=== PATIENT | female | born 1945 | race Caucasian/White ===

== ENCOUNTER 2024-12-27 03:29 | Emergency (ER) | payer MEDICARE, MEDICAID, SELFPAY ==
[2024-12-27] VITALS (7 sets, daily range): BP systolic 128–137; BP diastolic 70–83; PULSE 67–83; RESP 17–20; TEMP 36–36.8; O2SAT 95–97; BMI 20.1
--- NOTE | 2024-12-27 04:29 | XR_ITS ---
Examination: CT brain head without contrast. 2-D sagittal coronal reconstructions Date and time of exam:December 27, 2024 0456 hours INDICATIONS: Patient fell today with injury to head, head pain CTDI: vol (mGy):46.40 DLP: (mGycm):905 Technique: Multiple CT axial sections of the brain have been obtained, 5 mm slice thickness. Contrast has not been administered. 2-D sagittal, coronal reconstructions have been obtained Low dose protocols were performed. One or more of the following dose reduction techniques were used; automated exposure control, adjustment of the mA and/or KV according to patient size, use of iterative reconstruction technique. Findings: No significant ventricular enlargement. Intra-axial or extra-axial hemorrhage density is not seen. No mass effect or midline shift Basal cisterns are not remarkable. Fourth ventricle is midline. Cranial vault intact. Impression: Negative for acute hemorrhage, mass effect or midline shift
--- NOTE | 2024-12-27 04:36 | XR_ITS ---
Examination: CT cervical spine without contrast 2-D sagittal reconstructions 2-D coronal reconstructions 3-D reconstructions. Exam date and time:December 27, 2024 0458 hours INDICATIONS: Patient fell today with injury to the neck, neck pain CTDI:vol (mGy) 11.66 DLP: (mGycm) 268 Technique: Multiple 2 mm axial sections of the cervical spine have been obtained. The coronal and sagittal reconstructions have been obtained. 3-D reconstructions have been obtained. Low dose protocols were performed. One or more of the following dose reduction techniques were used; automated exposure control, adjustment of the mA and/or KV according to patient size, use of iterative reconstruction technique. Findings: Axial sections demonstrate intact base of the skull. C1 exhibit satisfactory relationship to the odontoid. No acute cervical vertebral body fracture seen. Alignment posterior spinous processes satisfactory. 8 mm nodule at the right apex, soft nodule Impression: No acute cervical fracture. Recommend PA and lateral AP lordotic chest follow-up
--- NOTE | 2024-12-27 04:52 | PD.EDFALL ---
ED Fall Injury RME/HPI General Chief Complaint: Fall Stated Complaint: FALL Time Seen by Provider: 12/27/24 04:28 Arrival date/time: 12/27/24 03:29 RME / HPI RME / HPI Narrative: Patient is a 79-year-old female with past medical history of hypertension, COPD, GERD, dementia, bipolar disorder, depression, and anxiety who was brought in by ambulance from [facility] to the ED on 12/27/2024. Per report, caregiver was washing hands and when they turned around the patient was found sitting on the floor with laceration to back of head. Patient is unable to provide any reliable history due to dementia. When asked about the fall patient states she does not know. Patient does seem to endorse mild head pain, denies any other compliant. Patient is not on any blood thinners. MD complaint: fall Onset (ago): hour(s) Fall from: standing Fall witnessed: no Place fall occurred: skilled nursing/SNF Loss of consciousness: unsure Prolonged down time: no Symptoms prior to fall: none Context: tripped/slipped Location of injury: head Related Data Home Medications ?Medication ?Instructions ?Recorded ?Confirmed atorvastatin 20 mg tablet 1 tab PO QDAY 04/01/22 04/01/22 divalproex 125 mg capsule,delayed 250 mg PO QDAY 04/01/22 04/01/22 release sprinkle duloxetine 30 mg capsule,delayed 60 mg PO QDAY 04/01/22 04/01/22 release gabapentin 300 mg capsule 3 cap PO QDAY 04/01/22 04/01/22 hydrochlorothiazide 25 mg tablet 25 tab PO QDAY 04/01/22 04/01/22 memantine 5 mg tablet 10 mg PO QDAY 04/01/22 04/01/22 pantoprazole 20 mg tablet,delayed 1 tab PO QDAY 04/01/22 04/01/22 release Past Medical History Past Medical History Comments PMH COMMENT: Past Medical History: Hypertension, COPD, GERD, dementia, bipolar disorder, depression, and anxiety Family History: Unknown Surgical History: Unknown Social History: Denies history of smoking, denies current alcohol use, denies recreational drug use Current Medications: Depakote 125 mg qday, sertraline 100 mg qday, gabapentin 300 mg TID, pantoprazole 20 mg qday, ferrous sulfate 325 mg, dilaudid prn, lorazepam prn, docusate prn, dulcolax prn, milk of magnesia prn, fleet enema prn, acetaminophen prn, guaifenesin (Source: [facility] medication list) Allergies: [place], morphine POLST form signed 2020 states patient is Limited Code: NO CPR, OK intubation ED Exam Narrative Physical exam: Physical Exam General: Awake and in no acute distress. Elderly appearing female, pleasantly confused. HEENT: Normocephalic, about 3 cm laceration to the occiput of the head, about 0.5 cm deep, with clotted blood, mucous membranes moist. Heart: Regular rate and rhythm, no murmurs. Lungs: Clear to auscultation with no wheezing or crackles. Abdomen: Soft, nondistended, nontender, positive bowel sounds. ?No guarding or rebound tenderness. Neurologic: Alert and oriented x1, no gross neurological deficit, and patient able to move all 4 extremities. Extremities: No edema. There is no tenderness to the back, lower extremities, or hips on palpation Skin: No rash or ecchymoses. Course Course Course Narrative: 06:30 Three el placed to occiput of head for 3 cm laceration. Re-dressed by [facility] SUPERVISOR. Quality Measures none Orders Category Date Time Status CT cervical spine wo con Stat Exams 12/27/24 04:[address] head/brain wo con Stat Exams 12/27/24 04:29 Taken HYDROcodone*/APAP 5/325 [[place] 5/325] Med 12/27/24 06:39 Discontinued 1 tab PO X1 ONE Vital Signs Vital signs: Vital Signs Temperature 98.2 F 12/27/24 03:34 Pulse Rate 83 12/27/24 03:34 Respiratory Rate 20 12/27/24 03:34 Blood Pressure 134/83 H 12/27/24 03:34 Pulse Oximetry (%) 95 12/27/24 03:34 Oxygen Delivery Method Room Air 12/27/24 03:34 Fall MDM Narrative MDM Narrative:: CT scans of the head/neck are normal. 06:00 At this time only labs CBC and CMP are pending. Care is signed out to the oncoming provider, Dr. Gillette. If labs normal patient can be discharged to SNF. Patient data External records reviewed:: Correction records Clinical information provided by:: EMS Social determinants that could affect healthcare access:: mental health Patient has the following chronic illnesses:: As above How is presenting disease/condition affected by chronic disease/condition?: uneffected by Evaluation data The following diagnostics were reviewed and interpreted by me:: lab results and radiology exam(s) Lab and/or radiology exams considered but not ordered:: None Interpretation Summary: CT scan of the head without intravenous contrast (axial sections with sagittal and coronal reformats) December 27, 2024 at 0456 hours Clinical History: Fall today unwitnessed. Comparison: No prior study is available for comparison. Findings: There is no evidence of intracranial hemorrhage, mass effect or midline shift. There are periventricular white matter hypodensities, compatible with chronic small vessel ischemia. There is severe volume loss. The calvarium is intact. The mastoid air cells and the visualized paranasal sinuses are clear. Impression: No evidence of intracranial hemorrhage, midline shift or calvarial fracture. Periventricular chronic small vessel ischemia and volume loss. CT scan of the cervical spine without intravenous contrast (axial sections with sagittal and coronal reformats) December 27, 2024 at 0458 hours Clinical History: Mechanical fall. Comparison: No prior study is available for comparison. Findings: There is no fracture or subluxation. The prevertebral soft tissues are unremarkable. Loss of the physiologic cervical lordosis. Degenerative changes of the cervical spine. Vascular calcification. Ground-glass opacity in the right lung. Bilateral apical scarring. Impression: No evidence of fracture or subluxation. Ground-glass opacity in the right lung. Consider follow-up with CT of the chest. Medications / Prescriptions Medications or Prescriptions considered but not ordered:: None Medication administrations:: Medication Administration History Discontinued Medications Hydrocodone Bitart/Acetaminophen (Hydrocodone/Apap 5/325 Tablet) 1 tab PO X1 ONE Stop: 12/27/24 06:40 None Consultations Consultation(s) initiated? (list below): No Diagnosis Fall Differential Diagnosis: other Most likely diagnosis given after review of the tests above:: Ground level mechanical fall Admission Indicated Admission indicated?: not indicated Admission Request Was there a request for admission?: No Disposition Plan Disposition Plan: Discharge Discharge Attestation Discharge Attestation: The patient and all family members were given an opportunity to ask questions and understood the discharge instructions. Discharge instructions specifically effects, indications for sooner follow up or return to the emergency department, and the expected course of current diagnosis. Patient condition: Stable Discharge Plan Plan Patient Disposition: Xfer Skilled Nsg Fac (SNF) Disposition Comment: [facility] Patient condition on transfer: Stable Prescriptions/Referrals Prescriptions/Med Rec: No Action atorvastatin 20 mg tablet 1 tab PO QDAY pantoprazole 20 mg tablet,delayed release (DR/EC) 1 tab PO QDAY gabapentin 300 mg capsule 3 cap PO QDAY hydrochlorothiazide 25 mg tablet 25 tab PO QDAY divalproex 125 mg capsule, delayed rel sprinkle 250 mg PO QDAY memantine 5 mg tablet 10 mg PO QDAY duloxetine 30 mg capsule,delayed release(DR/EC) 60 mg PO QDAY Referrals: Brigido Perez MD [Primary Care Provider] - In 1 week Problem List Clinical Impression: Ground-level fall, Laceration of head Patient/Caregiver Discharge Instructions Discharge Activity: as per physical therapy and activity as tolerated Additional Instructions: Head scans today are negative for injuries. Brianna received 3 el over the site of the head laceration. Please see your PCP or return in 7-10 days for staple removal. Please ensure supervision when patient is getting up. Print Language: Korean Stand Alone Forms: [employer] [facility] Info., Patient Portal Info Letter
--- NOTE | 2024-12-27 05:21 | PRELIM_ITS ---
CT scan of the head without intravenous contrast (axial sections with sagittal and coronal reformats) December 27, 2024 at 0456 hours Clinical History: Fall today unwitnessed. Comparison: No prior study is available for comparison. Findings: There is no evidence of intracranial hemorrhage, mass effect or midline shift. There are periventricular white matter hypodensities, compatible with chronic small vessel ischemia. There is severe volume loss. The calvarium is intact. The mastoid air cells and the visualized paranasal sinuses are clear. Impression: No evidence of intracranial hemorrhage, midline shift or calvarial fracture. Periventricular chronic small vessel ischemia and volume loss. Report Electronically Signed By: Jacky Rodriguez 12/27/2024 5:21:15 AM [EST]
--- NOTE | 2024-12-27 05:23 | PRELIM_ITS ---
CT scan of the cervical spine without intravenous contrast (axial sections with sagittal and coronal reformats) December 27, 2024 at 0458 hours Clinical History: Mechanical fall. Comparison: No prior study is available for comparison. Findings: There is no fracture or subluxation. The prevertebral soft tissues are unremarkable. Loss of the physiologic cervical lordosis. Degenerative changes of the cervical spine. Vascular calcification. Ground-glass opacity in the right lung. Bilateral apical scarring. Impression: No evidence of fracture or subluxation. Ground-glass opacity in the right lung. Consider follow-up with CT of the chest. Report Electronically Signed By: Jacky Rodriguez 12/27/2024 5:22:19 AM [EST]
--- NOTE | 2024-12-27 06:33 | PC.NURSE ---
Lac to back of head being stapled by Dr. Herring.
--- NOTE | 2024-12-27 07:40 | PC.CM ---
BANDARWCarmen was consulted regarding transportation for the patient back to [facility]. ASW arranging transportation for the patient back to [facility].
--- NOTE | 2024-12-27 12:19 | PC.NURSE ---
SNF notified ETA [id number]
== END 2024-12-27 14:14 | disposition skilled nursing facility (03) ==
PROVIDERS: Emergency Provider Student in an Organized Health Care Education/Training Program; PCP Hospitalist
DX: S01.01XA Laceration without foreign body of scalp, initial encounter (principal); I10 Essential (primary) hypertension; J44.9 Chronic obstructive pulmonary disease, unspecified; F03.94 Unspecified dementia, unspecified severity, with anxiety; F03.93 Unspecified dementia, unspecified severity, with mood disturbance; F31.9 Bipolar disorder, unspecified; Z88.5 Allergy status to narcotic agent; Z66 Do not resuscitate; W18.30XA Fall on same level, unspecified, initial encounter; Y92.129 Unspecified place in nursing home as the place of occurrence of the external cause
CPT/HCPCS: 12002; 70450; 72125; 80053; 85025; 99284